=== PATIENT | male | born 2000 | race Caucasian/White ===

== ENCOUNTER 2019-06-01 01:42 | Emergency (ER) | payer SELFPAY ==
[~2019-06-01] VITALS: Ht 182.9 cm; Wt 77.1 kg
[~2019-06-01 01:42] MED LIST: LACTATED RINGERS 1,000 ML IV ONE; ONDANSETRON 4 MG/2 ML (SDV) Z0FRAN ONE
[2019-06-01] MEDS ORDERED: LACTATED RINGERS 1,000 ML IV STA (01:46)
[2019-06-01 01:57] LABS: BASOPHILS % (AUTO) 0 % (0-10); EOSINOPHILS # (AUTO) 0.2 10^3/uL (0.0-0.3); EOSINOPHILS % (AUTO) 1 % (0-10); HEMATOCRIT 44 % (40-54); HEMOGLOBIN 15.8 G/DL (13.3-17.7); LYMPHOCYTES # (AUTO) 5.7 X 10^3 (1.0-4.0); LYMPHOCYTES % (AUTO) 46 % (12-44); MEAN CORPUSCULAR HEMOGLOBIN 30 PG (25-34); MEAN CORPUSCULAR HGB CONC 36 G/DL (32-36); MEAN CORPUSCULAR VOLUME 84 FL (80-99); MEAN PLATELET VOLUME 9.8 FL (7.4-10.4); MONOCYTES % (AUTO) 8 % (0-12); NEUTROPHILS # (AUTO) 5.4 X 10^3 (1.8-7.8); NEUTROPHILS % (AUTO) 44 % (42-75); PLATELET COUNT 297 10^3/uL (130-400); RED CELL DISTRIBUTION WIDTH 11.8 % (10.0-14.5); WHITE BLOOD COUNT 12.3 10^3/uL (4.3-11.0)
[2019-06-01] MEDS ORDERED: ONDANSETRON 4 MG/2 ML (SDV) Z0FRAN IVP ONE (02:00)
[2019-06-01 02:26] LABS: ALANINE AMINOTRANSFERASE 36 U/L (0-55); ALBUMIN 4.2 GM/DL (3.2-4.5); ALKALINE PHOSPHATASE 97 U/L (40-136); BILIRUBIN,TOTAL 0.3 MG/DL (0.1-1.0); BUN/CREATININE RATIO 13; CALCIUM 8.9 MG/DL (8.5-10.1); CARBON DIOXIDE 22 MMOL/L (21-32); CHLORIDE 103 MMOL/L (98-107); CREATININE SERUM 0.99 MG/DL (0.60-1.30); GFR ESTIMATED > 60; GLUCOSE 119 MG/DL (70-105); POTASSIUM 2.7 MMOL/L (3.6-5.0); SALICYLATE < 5.0 MG/DL (5.0-20.0); SODIUM 138 MMOL/L (135-145); TOTAL PROTEIN 7.9 GM/DL (6.4-8.2)
[2019-06-01 02:33] LABS: ACETAMINOPHEN < 10 UG/ML (10-30)
--- NOTE | 2019-06-01 04:03 | ED Psychosocial ---
General Chief Complaint: Substance Abuse Stated Complaint: SOB,UNRESPONSIVE Source: patient Exam Limitations: intoxication History of Present Illness Date Seen by Provider: Jun 01, 2019 Time Seen by Provider: 01:40 Initial Comments Brought in by friends reports that the patient was passed out. Arrives vomiting and admitting to drinking quite a bit of alcohol. At first he stated he only had 4 drinks but then admits that he had quite a bit of rum and monster drinks. Denies injury but is quite intoxicated. No obvious injury noted. Friends noted that they found him at home vomiting and coughing on his vomit. They thought he wasn't breathing. One of his friends reported that he did a couple of chest compressions and he woke up some and started breathing. They brought him to the ER due to concerns of severe alcohol intoxication and breathing problems. After patient awoke later, he admitted that he did not really eat anything yesterday and drink the drinks. Timing/Duration: this morning Severity: moderate Associated Symptoms: ingestion Allergies and Home Medications Allergies Coded Allergies: Penicillins (Verified Allergy, Unknown, 06/01/19) Patient Home Medication List Home Medication List Reviewed: Yes Review of Systems Constitutional: see HPI Respiratory: no symptoms reported Cardiovascular: no symptoms reported Gastrointestinal: nausea, vomiting Skin: no symptoms reported Review of systems limited due to intoxication Past Mmryvxm-Wsyrik-Ucwmhx Hx Patient Social History Alcohol Use: Occasionally Uses Recent Foreign Travel: No Contact w/Someone Who Travel: No Physical Exam Vital Signs - First Documented 06/01/19 06/01/19 01:42 03:40 Temp 97.7 Pulse 73 Resp 18 B/P (MAP) 143/86 (105) Pulse Ox 100 O2 Delivery Room Air Capillary Refill : Height, Weight, BMI Height: '" Weight: lbs. oz. kg; BMI Method: General Appearance: WD/WN, no apparent distress HEENT: PERRL/EOMI, pharynx normal Neck: full range of motion, supple Respiratory: lungs clear, normal breath sounds Cardiovascular: no murmur, tachycardia Peripheral Pulses: 2+ Dorsalis Pedis (R), 2+ Left Dors-Pedis (L), 2+ Radial Pulses (R), 2+ Radial Pulses (L) Gastrointestinal: non tender, soft Extremities: non-tender, normal inspection Neurologic/Psychiatric: alert, oriented x 3 Appearance/Memory: disheveled Behavior/Eye Contact: other (intoxicated with slurred speech) Skin: normal color, warm/dry; No ecchymosis Progress/Results/Core Measures Results/Orders Lab Results Laboratory Tests Test 06/01/19 01:45 Range/Units White Blood Count 12.3 H 4.3-11.0 10^3/uL Red Blood Count 5.26 4.35-5.85 10^6/uL Hemoglobin 15.8 13.3-17.7 G/DL Hematocrit 44 40-54 % Mean Corpuscular Volume 84 80-99 FL Mean Corpuscular Hemoglobin 30 25-34 PG Mean Corpuscular Hemoglobin Concent 36 32-36 G/DL Red Cell Distribution Width 11.8 10.0-14.5 % Platelet Count 297 130-400 10^3/uL Mean Platelet Volume 9.8 7.4-10.4 FL Neutrophils (%) (Auto) 44 42-75 % Lymphocytes (%) (Auto) 46 H 12-44 % Monocytes (%) (Auto) 8 0-12 % Eosinophils (%) (Auto) 1 0-10 % Basophils (%) (Auto) 0 0-10 % Neutrophils # (Auto) 5.4 1.8-7.8 X 10^3 Lymphocytes # (Auto) 5.7 H 1.0-4.0 X 10^3 Monocytes # (Auto) 1.0 0.0-1.0 X 10^3 Eosinophils # (Auto) 0.2 0.0-0.3 10^3/uL Basophils # (Auto) 0.0 0.0-0.1 10^3/uL Sodium Level 138 135-145 MMOL/L Potassium Level 2.7 L 3.6-5.0 MMOL/L Chloride Level 103 98-107 MMOL/L Carbon Dioxide Level 22 21-32 MMOL/L Anion Gap 13 5-14 MMOL/L Blood Urea Nitrogen 13 7-18 MG/DL Creatinine 0.99 0.60-1.30 MG/DL Estimat Glomerular Filtration Rate > 60 BUN/Creatinine Ratio 13 Glucose Level 119 H 70-105 MG/DL Calcium Level 8.9 8.5-10.1 MG/DL Corrected Calcium 8.7 8.5-10.1 MG/DL Total Bilirubin 0.3 0.1-1.0 MG/DL Aspartate Amino Transf (AST/SGOT) 32 5-34 U/L Alanine Aminotransferase (ALT/SGPT) 36 0-55 U/L Alkaline Phosphatase 97 40-136 U/L Total Protein 7.9 6.4-8.2 GM/DL Albumin 4.2 3.2-4.5 GM/DL Salicylates Level < 5.0 L 5.0-20.0 MG/DL Acetaminophen Level < 10 L 10-30 UG/ML Serum Alcohol 161 H <10 MG/DL My Orders Orders - EVELINE ANAND MD Ondansetron Injection (Zofran Injectio (06/01/19 02:00) Lactated Ringers (Lr 1000 Ml Iv Solution (06/01/19 01:46) Ed Iv/Invasive Line Start (06/01/19 01:46) Alcohol (06/01/19 01:46) Cbc With Automated Diff (06/01/19 01:46) Comprehensive Metabolic Panel (06/01/19 01:46) Acetaminophen (06/01/19 01:46) Salicylate (06/01/19 01:46) Ondansetron Injection (Zofran Injectio (06/01/19 01:42) Lactated Ringers (Lr 1000 Ml Iv Solution (06/01/19 01:42) End Tidal Co2 (06/01/19 03:45) Chest 1 View, Ap/Pa Only (06/01/19 05:34) Potassium Chloride (Tablet) (K Dur Table (06/01/19 06:00) Medications Given in ED Vital Signs/I&O Progress Progress Note : Progress Note Seen and evaluated on arrival. IV, labs, UA and UDS. LR 1 L bolus 2. Zofran 8 mg IV ordered. Monitor patient. 0345: Resting peacefully without distress. Patient on end-tidal CO2 monitor with end-tidal measurements of 40. Continue to monitor. 0545: Patient is starting to wake. His girlfriend is here and is able to watch him at home. Chest x-ray is negative. Labs do not show significant abnormality other than alcohol intoxication and potassium is a little low. KCl 20 mEq by mouth given and he has tolerated. 0600: Discharged home with return precautions. Patient verbalize understanding instructions and agreement with plan. Diagnostic Imaging Diagonstic Imaging: Xray Plain Films/CT/US/NM/MRI: chest Comments No acute findings Departure Impression Primary Impression: Alcohol intoxication Qualified Codes: F10.920 - Alcohol use, unspecified with intoxication, uncomplicated Additional Impression: Hypokalemia Disposition: 01 HOME, SELF-CARE Condition: Stable Departure-Patient Inst. Decision time for Depature: 05:59 Referrals: NO,LOCAL PHYSICIAN (PCP) Primary Care Physician Patient Instructions: ALCOHOL AND SUBSTANCE ABUSE, Hypokalemia (DC) Add. Discharge Instructions: All discharge instructions reviewed with patient and/or family. Voiced understanding. Clear liquid or a light diet today. You should drink electrolyte replacement fluids such as Gatorade or similar as your potassium was a little low. As your appetite improves and her stomach feels better, you may eat some high potassium foods such as bananas or potato chips to help replace her potassium. Otherwise eat a normal diet and drink plenty of fluids. You should avoid alcohol. Return for worse pain, fever, vomiting, weakness, breathing problems or other concerns as needed. EVELINE ANAND MD Jun 01, 2019 04:03
[2019-06-01] MEDS ORDERED: KCL 20 MEQ TAB (K-DUR) PO ONE (06:00)
[2019-06-01 06:08] VITALS: BP 123/70
--- NOTE | 2019-06-01 06:38 | Diagnostic Imaging Report ---
EXAMINATION: Chest radiograph, portable AP view. DATE: June 01, 2019 at 0543 hours. INDICATION: 19-year-old male, vomiting. COMPARISON: None. FINDINGS: Heart size and mediastinal contours are unremarkable. There is no identified pneumothorax. There is no large pleural effusion. There is no identified focal airspace consolidation. IMPRESSION: No identified acute cardiopulmonary abnormality. Dictated by: Dictated on workstation # [id number]
== END 2019-06-01 06:09 | disposition home or self-care (01) ==
LOC: EDUNIT# 01:42 → ER 01:45
DX: F10.129 Alcohol abuse with intoxication, unspecified (principal); E87.6 Hypokalemia; Z88.0 Allergy status to penicillin; Y90.6 Blood alcohol level of 120-199 mg/100 ml
CPT/HCPCS: 36415; 71045; 80053; 80320; 80329; 85025